=== PATIENT | male | born 1940 | race Caucasian/White ===

== ENCOUNTER → 2019-04-25 | Outpatient (CLI) | payer MEDICARE, OTHER ==
[2018-11-02 11:00] VITALS: BP 146/60
[~2019-04-25] MED LIST: ASPI-612 PO; BUDE0.5A NEB; CHOL10003 PO; CLOP75TA PO; FERR325T14 PO; FINA5TAB4 PO; FLUO20CA20 PO; IPRA3AMP29 NEB; LEVO50TA5 PO; LOSA1TAB22 PO; Nicotine 21MG TD; OLAN10TA9 PO; PANT20TA2 PO; QUET25TA PO; SIMV40TA18 PO; TRAM50TA PO; TRAZ-118 PO
--- NOTE | 2019-04-26 08:44 | RAD ---
LUMBAR SPINE WO CONTRAST History: Neurological deficits. Technique: Multiplanar, multi sequential MR imaging was performed of the lumbar spine. Comparison: October 28, 2018 and November 18, 2015 Findings: Minimal retrolisthesis L2 on L3. Otherwise, normal alignment. Normal vertebral body height. No fracture. Conus terminates at the normal location. No evidence of nerve root clumping. Bilateral renal cysts. L1-L2: Small posterior disc bulge. No canal or neuroforaminal narrowing. L2-L3: Minimal retrolisthesis. Broad-based posterior disc bulge. Mild facet arthropathy. Bilateral subarticular recess narrowing. Minimal canal narrowing. Mild to moderate bilateral neural foraminal narrowing. L3-L4: Small posterior disc bulge. Mild facet arthropathy. Subacute recess narrowing. No canal narrowing. Mild left neuroforaminal narrowing. No right neuroforaminal narrowing. L4-L5: Broad-based posterior disc bulge. Advanced facet arthropathy. Subarticular recess narrowing. Mild canal narrowing. Mild to moderate left and mild right bilateral neural foraminal narrowing. L5-S1: Broad-based posterior disc bulge. Advanced facet arthropathy. Bilateral subarticular recess narrowing. Minimal canal narrowing. Severe right and moderate left neural foraminal narrowing. When compared the prior examination the degenerative findings are similar. Impression: 1. Moderate multilevel lumbar spondylosis most prominent L2-L3, unchanged. 2. Multilevel neural foraminal narrowing most severe right L5-S1, unchanged. Electronically signed by: Reid Jerry DO (04/26/2019 8:41 AM) [id number]
== END | disposition home or self-care (01) ==
LOC: MRI 09:49
PROVIDERS: ATTEND Psychiatry & Neurology Neurology
DX: N28.1 Cyst of kidney, acquired (principal); M12.88 Other specific arthropathies, not elsewhere classified, other specified site; M51.27 Other intervertebral disc displacement, lumbosacral region; M48.07 Spinal stenosis, lumbosacral region; M47.816 Spondylosis without myelopathy or radiculopathy, lumbar region; G20 Parkinson's disease
CPT/HCPCS: 72148